=== PATIENT | female | born 1990 | race African-American/Black ===

== ENCOUNTER 2016-06-30 18:26 | Emergency (ER) | payer SELFPAY ==
[~2016-06-30] VITALS: Ht 165.1 cm; Wt 92.0 kg
[~2016-06-30 18:26] MED LIST: CYCL-36 PO; FLAG500T PO; IBUP800 PO; MIREIUD IU
[2016-06-30 18:30] VITALS: BP 148/103; PULSE 110; RESP 16; TEMP 100.8; O2SAT 100
[2016-06-30 19:06] VITALS: BP 148/103; PULSE 113; RESP 18; TEMP 100.8; O2SAT 100
[2016-06-30] MEDS ORDERED: IBUPROFEN 800 MG TAB PO ONE (19:15)
--- NOTE | 2016-06-30 19:39 | RADHPO ---
EXAM DATE/TIME: 06/30/2016 19:13 [place] COMPARISON: No previous studies available for comparison. INDICATIONS : Shortness of breath, chest congestion for 2 days MEDICAL HISTORY : None. SURGICAL HISTORY : None. ENCOUNTER: Initial ACUITY: 2 days PAIN SCORE: 0/10 LOCATION: Bilateral chest FINDINGS: PA and lateral views of the chest demonstrate the lungs to be symmetrically aerated without evidence of mass, infiltrate or effusion. The cardiomediastinal contours are unremarkable. Osseous structure s are intact. CONCLUSION: No acute disease. Rony Babb MD on June 30, 2016 at 19:37 Board Certified Radiologist. This report was verified electronically.
--- NOTE | 2016-06-30 19:52 | PD ---
HPI Chief Complaint: Cold / Flu Symptoms Time Seen by Provider: 19:48 Travel History International Travel<30 days: No Contact w/Intl Traveler<30days: No Traveled to known affect area: No History of Present Illness HPI Patient is a 26-year-old female presenting to the emergency department for evaluation of cough, fevers, body aches, sore throat. Patient's symptoms started Tuesday, she stated it got worse on Tuesday. Patient is been taking Robitussin cough and cold. She denies any diarrhea, nausea, vomiting, shortness of breath, chest pain. She does report decreased appetite and decreased oral intake. [facility] Past Medical History Medical History: Denies Significant Hx Tetanus Vaccination: < 5 Years Influenza Vaccination: Yes ?: Not Past Surgical History Surgical History: No Previous Surgery Social History Alcohol Use: No Tobacco Use: No Substance Use: No Allergies-Medications (Allergen,Severity, Reaction): Coded Allergies: No Known Allergies (Verified , 06/30/16) Reported Meds & Prescriptions Reported Meds & Active Scripts Active No Active Prescriptions or Reported Medications Review of Systems Except as stated in HPI: all other systems reviewed are Neg General / Constitutional: Positive: Fever, Chills HENT: Positive: Headaches, Sore Throat, Congestion Cardiovascular: No: Chest Pain or Discomfort Respiratory: Positive: Cough, No: Shortness of Breath, Wheezing Gastrointestinal: No: Nausea, Vomiting, Diarrhea, Abdominal Pain Genitourinary: No: Dysuria Neurologic: Positive: Dizziness (this morning at work) Physical Exam Narrative GENERAL: Well-developed, well-nourished, alert female. SKIN: Focused skin assessment warm/dry. HEAD: Atraumatic. Normocephalic. EYES: Pupils equal and round. No scleral icterus. No injection or drainage. ENT: No nasal bleeding or discharge. Mucous membranes pink and moist. Erythematous posterior pharynx with cobblestoning appearance. No exudates noted , airways patent. NECK: Trachea midline. No JVD. CARDIOVASCULAR: Tachycardic. No murmur appreciated. RESPIRATORY: No accessory muscle use. Clear to auscultation. Breath sounds equal bilaterally. GASTROINTESTINAL: Abdomen soft, non-tender, nondistended. Hepatic and splenic margins not palpable. MUSCULOSKELETAL: No obvious deformities. No clubbing. No cyanosis. No edema. NEUROLOGICAL: Awake and alert. No obvious cranial nerve deficits. Motor grossly within normal limits. Normal speech. PSYCHIATRIC: Appropriate mood and affect; insight and judgment normal. Data Data Last Documented VS Vital Signs Date Time Temp Pulse Resp B/P Pulse Ox O2 Delivery O2 Flow Rate FiO2 06/30/16 21:35 98.8 105 18 98 Room Air 06/30/16 20:22 154/76 Orders Ibuprofen (Motrin) (06/30/16 19:15) Influenzae A/B Antigen (06/30/16 19:02) Chest, Pa & Lat (06/30/16 ) Iv Access Insert/Monitor (06/30/16 19:48) Sodium Chlor 0.9% 1000 Ml Inj (Ns 1000 M (06/30/16 20:00) Acetaminophen (Tylenol) (06/30/16 21:00) Sodium Chlor 0.9% 1000 Ml Inj (Ns 1000 M (06/30/16 21:00) MDM Medical Decision Making Medical Screen Exam Complete: Yes Emergency Medical Condition: Yes Interpretation(s) Last Impressions Chest X-Ray 06/30/16 0000 Signed Impressions: Service Date/Time: Thursday, June 30, 2016 19:13 - CONCLUSION: No acute disease. Rony Babb MD Vital Signs Date Time Temp Pulse Resp B/P Pulse Ox O2 Delivery O2 Flow Rate FiO2 06/30/16 19:06 100.8 113 18 148/103 100 Room Air 06/30/16 18:30 100.8 110 16 148/103 100 Differential Diagnosis Influenza versus viral syndrome versus pneumonia versus bronchitis versus other Narrative Course Patient is a 26-year-old female presenting to emergency department for evaluation of flulike symptoms. Chest x-ray, influenza, IV access, IV fluids, ibuprofen ordered. Patient was tachycardic on arrival, pulse reassessed at 113. Will give IV fluids and ibuprofen and reassessed. Patient is positive for influenza, she is 72 hours out from the start of her symptoms. Tamiflu will likely be of no benefit at this time. Patient received 2 L of IV fluids as well as ibuprofen and acetaminophen. Patient's temp is 98, her heart rate was reassessed at 100-103. Patient feels well. Patient was advised to continue symptom management. She was encouraged to continue taking ibuprofen and/or acetaminophen as needed and as directed to control fevers and body aches. She was encouraged to maintain adequate fluid intake, rest. Patient was advised to avoid work until she is fever free for 24 hours. She was encouraged to return to emergency department for any new or worsening symptoms. Patient verbalized understanding of instructions. Patient is stable for discharge. Diagnosis Primary Impression: Influenza A Referrals: Primary Care Physician Patient Instructions: General Instructions, Influenza (ED) Additional Instructions: Follow-up with primary Maintain adequate fluid intake Get adequate rest Take ibuprofen and/or acetaminophen as needed and as directed to control fevers and for body aches and pain. Return to emergency department for any new or worsening symptoms Med/Other Pt SpecificInfo: Prescription(s) given Scripts Ondansetron Odt (Zofran Odt)4 Mg Tab4 Mg SL Q6HR PRN (Nausea/Vomiting) 3 Days Ref 0 Prov:Mare Houston 06/30/16 Ibuprofen 800 Mg [id number] Mg PO Q6HR PRN (PAIN) #40 TAB Ref 0 Prov:Mare Houston 06/30/16 Benzonatate (Tessalon Perles)100 Mg [id number] Mg PO TID PRN (COUGH) #12 CAP Ref 0 Prov:Mare Houston 06/30/16 Disposition: 01 DISCHARGE HOME Condition: Stable Mare Houston Jun 30, 2016 19:52
[2016-06-30] MEDS ORDERED: SODIUM CHLOR 0.9% 1000 ML INJ 1,000 ML IV ONE ×2 (20:00→21:00)
[2016-06-30 20:22] VITALS: BP 154/76; PULSE 108; RESP 14; TEMP 100.1; O2SAT 100
[2016-06-30] MEDS ORDERED: ACETAMINOPHEN 500 MG CPLT PO ONE (21:00)
[2016-06-30 21:35] VITALS: PULSE 105; RESP 18; TEMP 98.8; O2SAT 98
[2016-06-30] MEDS ORDERED: BENZ100 PO (21:59)
[2016-06-30] MEDS ORDERED: ZOFR4TAB3 SL (21:59)
[2016-06-30] MEDS ORDERED: IBUP800T23 PO (21:59)
== END 2016-06-30 22:16 | disposition home or self-care (01) ==
LOC: PHED 18:26 → PHEFT 22:16
DX: J10.1 Influenza due to other identified influenza virus with other respiratory manifestations (principal)
CPT/HCPCS: 71020; 87804; 96360; 96361; 99283; J7030